=== PATIENT | male | born 1955 ===

== ENCOUNTER 2017-09-30 12:23 | Inpatient (IN) | payer OTHER ==
[~2017-09-30 12:23] MED LIST: CEFAZOLIN 2 Gram 2 GM/50 ML BAG IVPB ONE; CELECOXIB 100 MG CAPSULE PO ONE; FAMOTIDINE 20MG TABLET PO ONE; MECLIZINE 25 MG TABLET PO ONE; METOCLOPRAMIDE 10 MG TABLET PO ONE; VANCOMYCIN HCL 1,000 MG in DEXTROSE 5 % IN WATER 250 ML IVPB ONE
[2017-09-30 13:11] LABS: ABO GROUP O; ANTIBODY SCREEN NEGATIVE (NEGATIVE); RH TYPE NEGATIVE
[2017-09-30] MEDS ORDERED: 0.9 % SODIUM CHLORIDE 10 ML VIAL IVP ONE (16:09)
[2017-09-30] MEDS ORDERED: TRANEXAMIC ACID 1,000 MG/10 ML ML IV ONE (16:09)
[2017-09-30] MEDS ORDERED: KETOROLAC 30 MG/ML VIAL IVP PRN ×2 (17:08)
[2017-09-30] MEDS ORDERED: ACETAMINOPHEN 325 MG TAB PO PRN (17:08)
[2017-09-30] MEDS ORDERED: ACETAMINOPHEN W/ CODEINE 300MG/60MG TABLET PO PRN ×2 (17:08)
[2017-09-30] MEDS ORDERED: ONDANSETRON HCL IV 4 MG/2 ML VIAL IVP PRN (17:08)
[2017-09-30] MEDS ORDERED: MAGNESIUM HYDROXIDE 30 ML UDC PO PRN (17:08)
[2017-09-30] MEDS ORDERED: TRAMADOL HCL 50 MG TABLET PO PRN (17:08)
[2017-09-30] MEDS ORDERED: ZOLPIDEM TARTRATE 5 MG TABLET PO PRN (17:08)
[2017-09-30] MEDS ORDERED: DIPHENHYDRAMINE HCL 25 MG CAPSULE PO PRN (17:08)
[2017-09-30] MEDS ORDERED: BISACODYL 10 MG SUPP RC PRN (17:08)
[2017-09-30] MEDS ORDERED: HYDROCODONE/APAP 10/325 TABLET PO PRN (17:08)
[2017-09-30] MEDS ORDERED: NALOXONE 0.4 MG/1 ML VIAL IVP PRN (17:08)
[2017-09-30] MEDS ORDERED: AL HYDROX/MAG HYDROX 30ML UD PO PRN (17:08)
[2017-09-30] MEDS: HYDROMORPHONE HCL 2 MG/ML VIAL IM PRN (20:04)
[2017-09-30] MEDS: POTASSIUM CHLORIDE/D5-0.9%NACL 20 MEQ/1,000 ML BAG IV SCH (20:05)
[2017-09-30] MEDS: DOCUSATE SODIUM 100 MG CAPSULE PO SCH (21:07)
[2017-09-30] MEDS: CARVEDILOL 3.125 MG TABLET PO SCH (21:07)
[2017-09-30] MEDS: GABAPENTIN 300 MG CAPSULE PO SCH (21:07)
[2017-09-30] MEDS: CEFAZOLIN 2 Gram 2 GM/50 ML BAG IVPB SCH (23:13)
[2017-10-01] MEDS ORDERED: LIDOCAINE UROJECT 10 ML APPL MM ONE (00:52)
[2017-10-01] MEDS: POTASSIUM CHLORIDE/D5-0.9%NACL 20 MEQ/1,000 ML BAG IV SCH ×2 (01:37→10:07)
[2017-10-01] MEDS: HYDROCODONE/APAP 10/325 TABLET PO PRN ×4 (01:49→15:55)
[2017-10-01] MEDS: CEFAZOLIN 2 Gram 2 GM/50 ML BAG IVPB SCH ×3 (06:12→18:37)
--- NOTE | 2017-10-01 06:31 | Operative Note ---
DATE: 09/30/2017. PREOPERATIVE DIAGNOSIS: ENDSTAGE ARTHROSIS OF THE LEFT KNEE. POSTOPERATIVE DIAGNOSES: ENDSTAGE ARTHROSIS OF THE LEFT KNEE. PROCEDURES: Cemented left total knee arthroplasty using [employer] II components , a size 7 Oxinium femur, a size 6 stemmed tibial baseplate, a 9.0 mm lipped highly crosslinked tibial insert, and a 35 mm all-plastic patella. STAFF SURGEON: Amrik Reynaga M.D. ANESTHESIA: Spinal. PREPARATION: ChloraPrep. INDIVIDUAL CONSIDERATIONS: None. DESCRIPTION OF THE PROCEDURE: The patient was taken to the operating room and placed supine on the operating table. He had successful induction of a spinal anesthetic. His left lower extremity was prepped and draped in the usual fashion. The limb was elevated and the tourniquet was inflated to 250 mm Hg. The patient had a midline approach to the knee. Sharp dissection was carried down through skin and subcutaneous tissue. Small veins were coagulated with the Bovie. A medial arthrotomy was performed. The patella was everted and the knee was flexed. The patient had exposed bone in the medial and patellofemoral compartments with bone loss medially. The fat pad was resected and the anterior cruciate ligament was sacrificed. Provisional anterior meniscectomies were performed, and the capsule was released from the medial proximal tibia. The initial femoral airline pilot/first officer hole was then made freehand. The intramedullary femoral cutting jig was placed. It was cut in 7.0 degrees of valgus, adjusted for rotation, and secured with pins for a 10-mm resection. The initial transverse cut was then made. The skin guide was placed through the anteroposterior airline pilot/first officer holes, and it was found that a size 7 would be appropriate. The anterior and posterior cuts followed by chamfer cuts were made. Osteophytes were removed, and a size 7 trial was placed and was found to fit well. The tibia was brought forward, and the remainder of the meniscal remnants were removed with the Bovie. Loose bodies were also removed posteriorly. There was a large cyst that was drained. The extra-articular tibial cutting jig was placed. It was cut in neutral with a 3.0-degree AP slope. Care was taken to adjust for rotation and flexion using the extra-articular alignment guide and bony landmarks. It was set for a 9.0 mm resection keyed of the high lateral side and secured with pins. When cutting the tibia, care was taken to preserve the posterior cruciate ligament insertion on the tibia. Osteophytes were removed, and it was found that a size 6.0 baseplate would fit appropriately. It was adjusted for rotation and secured with pins. With a 9.0-mm trial in the femoral trial, there was excellent motion and stability. Ligamentous balance, rotation, and alignment were thought to be normal. The femoral airline pilot/first officer holes were impacted, a triflange tibial stamp was impacted, and these trial components were removed. The patient had a thick patella, and roughly 9.0 mm of bone was removed freehand. I could easily fit a 35 patella, and the three airline pilot/first officer holes were drilled. The tourniquet was let down briefly to get bleeders posteriorly and was then placed back up again. The knee was then thoroughly irrigated out with pulsatile Betadine and saline to remove any visual or palpable debris. Bony surfaces were then dried. A size 6 stemmed tibial baseplate was cemented into place followed by impaction of the 9.0 mm lipped tibial insert followed by cementing in the size 7 Oxinium femur followed by cementing in the 35-mm patella. Implant surfaces were compressed and excess cement was removed. After the cement had set there was excellent motion and stability. Ligamentous balance, rotation, alignment, and patellofemoral tracking were normal. No lateral release was required. Again thorough irrigation was performed to remove any visual or palpable debris with pulsatile Betadine and saline. The tourniquet was let down, and hemostasis was obtained with a Bovie. The capsule was then closed with a running #2 Quill. Subcutaneous was closed in layers with running 0 Quill. The skin, subcutaneous tissue, and periosteum were also infiltrated with 30 mL of 0.75% Marcaine with epinephrine. The skin was closed with yue. The patient had received 1.0 gm of tranexamic acid preoperatively. I mixed 1.0 gm of tranexamic acid with 30 mL of saline and injected it into the knee through a sterile 18-gauge needle. A sterile, bulky compressive Aquacel-type dressing was applied. The patient tolerated the procedure well. Needle and sponge counts were correct. Estimated blood loss was minimal. He was taken back to recovery in good condition. There were no complications. cc: Bienvenido Chapman
[2017-10-01 07:00] LABS: HEMATOCRIT 37.6 % (42.0-52.0); HEMOGLOBIN 12.3 gm/dl (14.0-18.0)
[2017-10-01 07:09] LABS: BLOOD UREA NITROGEN 10 mg/dL (8-23); CREATININE 0.9 mg/dL (0.7-1.2); EST GLOMERULAR FILTRATION RATE > 60 mL/min; GLUCOSE,RANDOM 114 mg/dL (74-109)
--- NOTE | 2017-10-01 09:48 | Rehab Evaluation ---
Patient Information - Patient Information Diagnosis: OA left knee Ordered Treatment: PT Evaluate and Treat Status: Initial Evaluation Surgery: Yes (Left TKA) Date of Surgery: 09/30/17 Past Medical/Surgical Hx: PAST MEDICAL/SURGICAL HISTORY Past Surgical History 10-10-16 lumbar sx cervical sx 08-07-16 cardiac stents 10-21-16 x's 2 right elbow scope 2012 PMH - Respiratory Hx Respiratory Disorders Yes Hx Pneumonia Yes: in past Hx Sleep Apnea Yes: possibly PMH - Cardiovascular Hx Cardiovascular Disorders Yes Hx Abnormal EKG Yes Hx Cardiac Catheterization Yes Hx Heart Attack Yes: minimal Hx Coronary Artery Disease Yes Hx Coronary Stent Yes: 10/29 Exercise Tolerance Good PMH - Neuro Hx Neurological Disorders No PMH - GI Hx Gastrointestinal Disorders No PMH - Hx Genitourinary Disorders No PMH - Endocrine Hx Endocrine Disorders No PMH - Musculoskeletal Hx Musculoskeletal Disorders Yes Hx Arthritis Yes PMH - Psych Hx Psychiatric Problems No PMH - Hematology/Oncology Hx Hematology/Oncology No Disorders Precautions: [place], Fall - Time With Patient Total Time Spent With Patient (Min): 30 Treatment Procedures: Detail (Patient seen in room, sitting up in chair and needs bandage changed since bleeding through. Nurse plans to do after we are done with his PT. Sit to stand without assistive device, carefully ambulated to closet without any support except briefly holding walker, able to get into sweat pants with very little assist then ambulated with appropriate height FWW to stairs, down steps three with only rail for support, pivoted around and ambulated back up three steps with only rail for support and correct technique. Ambulated with FWW, light hold and full weightbearing another 100 feet then back into room. Sat in chair for review of exercises for knee which he was able to do easily.) Subjective Information - Subjective Information Per Patient (Lives in single story home with , no stairs even into house. Has standard tub/shower with handholds so does not anticipate any problems. Standard height toilet but also does not anticipate any issues. Patient indicates wants to go to therapy in town where he lives.) Objective Data - Pain Pain Present: Yes Pain Scale Used: 6-7/10 - Mental Status Patient Orientation: Oriented x3 - Visual Perception Appears within normal limits for therapeutic activities - ROM Within normal limits (except knee slightly decreased: able to flex about 60 degrees and extension about -5 degrees.) - Strength/Tone Within normal limits (Doing well with weightbearing already and strength quads 3 +/5 or better. Hamstrings normal, hip normal.) - Coordination Appears within normal limits for therapeutic activities (Can't balance yet single leg left but able to walk with very little UE support.) - Bed Mobility Independent - Transfers Independent - Balance Balance Sitting: Good Balance Standing: Good - Sensation Intact - Gait Detail (Able to ambulate with FWW and very little support UES, almost full weightbearing on left LE 100+ feet in [place], up and down three steps with very little assist.) - Special Tests No Therapy Assessment - Therapy Assessment Detail (Patient has only slight issues with mobility, gait, transfers, exercises , stairs at this point.) Patient Education - Patient Education Teaching Topic: Equipment Use, Exercise/Activity Response: Return Demonstration Teaching Method: Demonstration Teaching Recipient: Patient Barriers To Learning: None Problem List - Problem List Physical Therapy Problem List: Detail (Patient would like to walk with cane so wants to try that before discharge. Very little issue with mobility, gait, execises so far but we will try to discharge him today and use only cane if appropriate.) Goals - Goals Physical Therapy Goals: Patient will be independent with mobility, gait with appropriate choice of assistive device, stairs, exercises as appropriate for right after surgery so can go home safely with . Prognosis - Prognosis Good (Very good as patient can already weightbear without assistive device and walking with almost full weightbearing with walker and ready to try cane.) Plan - Plan Physical Therapy Plan: Patient has actually passed all of skills needed to go home safely, but if still in hospital this afternoon, we will try gait with cane to see if he is ready for that. So daily or BID treatment today for preparation to go home with safely probably day after surgery.
[2017-10-01] MEDS ORDERED: RIVAROXABAN 10 MG TABLET PO SCH (10:00)
[2017-10-01] MEDS ORDERED: CLOPIDOGREL 75MG TABLET PO SCH (10:00)
[2017-10-01] MEDS ORDERED: ATORVASTATIN 20 MG TABLET PO SCH (10:00)
[2017-10-01] MEDS ORDERED: LISINOPRIL 5 MG TABLET PO SCH (10:00)
[2017-10-01] MEDS ORDERED: ASPIRIN 81 MG TABEC PO SCH (10:00)
[2017-10-01] MEDS ORDERED: FERROUS SULFATE 325 MG TAB PO SCH (10:00)
[2017-10-01] MEDS: DOCUSATE SODIUM 100 MG CAPSULE PO SCH (10:11)
[2017-10-01] MEDS: GABAPENTIN 300 MG CAPSULE PO SCH (10:12)
[2017-10-01] MEDS: HYDROMORPHONE HCL 2 MG/ML VIAL IM PRN (10:15)
[2017-10-01] MEDS: CARVEDILOL 3.125 MG TABLET PO SCH (10:25)
--- NOTE | 2017-10-01 10:44 | Rehab Evaluation ---
Patient Information - Patient Information Diagnosis: OA left knee Ordered Treatment: OT Evaluate and Treat Status: Initial Evaluation Surgery: Yes (Left TKA) Date of Surgery: 09/30/17 Past Medical/Surgical Hx: PAST MEDICAL/SURGICAL HISTORY Past Surgical History 10-10-16 lumbar sx cervical sx 08-07-16 cardiac stents 10-21-16 x's 2 right elbow scope 2012 PMH - Respiratory Hx Respiratory Disorders Yes Hx Pneumonia Yes: in past Hx Sleep Apnea Yes: possibly PMH - Cardiovascular Hx Cardiovascular Disorders Yes Hx Abnormal EKG Yes Hx Cardiac Catheterization Yes Hx Heart Attack Yes: minimal Hx Coronary Artery Disease Yes Hx Coronary Stent Yes: 10/29 Exercise Tolerance Good PMH - Neuro Hx Neurological Disorders No PMH - GI Hx Gastrointestinal Disorders No PMH - Hx Genitourinary Disorders No PMH - Endocrine Hx Endocrine Disorders No PMH - Musculoskeletal Hx Musculoskeletal Disorders Yes Hx Arthritis Yes PMH - Psych Hx Psychiatric Problems No PMH - Hematology/Oncology Hx Hematology/Oncology No Disorders Premorbid Status: Detail (Pt. was Ind with all I/ADL's prior to sx. Pt. has hx of R elbow sx with no residual limits to function.) Social History: Detail (Pt. lives in a single story ranch style home with a basement, and 1 six inch step to enter. Per pt report, he will not use basement during recovery period. Bathroom has a standard toilet, 1 small threshold step into shower, and a grab bar in the shower. Pt's will be available to assist if needed.) Precautions: [place], Fall - Time With Patient Total Time Spent With Patient (Min): 18 Subjective Information - Subjective Information Per Patient Objective Data - Pain Pain Present: Yes (Pt. stated 8/10 knee pain (just finished with PT session).) - Mental Status Patient Orientation: Oriented x3 - Visual Perception Appears within normal limits for therapeutic activities - ROM Within normal limits (BUE) - Strength/Tone Within normal limits (BUE) - Coordination Appears within normal limits for therapeutic activities - Bed Mobility Independent (not observed/per PT report) - Transfers Independent (Ind. with sit<>stand from chair.) - Balance Balance Sitting: Good Balance Standing: Good - Sensation Intact (lt touch in tact BUE fingertips) - ADL's/IADL's Detail (Physical therapy reported pt. independently dressed LB in elastic waist pants while standing. Pt. demo. ability to Ind. don & doff bilateral socks while seated in chair. Educ. provided in adaptive dressing techniques, pt. verbalized understanding. Pt. reported he stands in the shower; educ. provided on safety tips and alternatives until pt. has standing endurance to complete ( if needed).) Therapy Assessment - Therapy Assessment Detail (No OT services recommended at this time. Pt. demo. Ind. dressing, has a positive support system, and voiced no concerns. Pt. didn't use walker for in- room functional ambulation, stating he doesn't need it. Pt. does not demo. need for AE (i.e. tar leveler, sock aid, etc.) at this time.) Problem List - Problem List Physical Therapy Problem List: Detail (Patient would like to walk with cane so wants to try that before discharge. Very little issue with mobility, gait, execises so far but we will try to discharge him today and use only cane if appropriate.) Goals - Goals Physical Therapy Goals: Patient will be independent with mobility, gait with appropriate choice of assistive device, stairs, exercises as appropriate for right after surgery so can go home safely with . Prognosis - Prognosis Good Plan - Plan Physical Therapy Plan: Patient has actually passed all of skills needed to go home safely, but if still in hospital this afternoon, we will try gait with cane to see if he is ready for that. So daily or BID treatment today for preparation to go home with safely probably day after surgery. Occupational Therapy Plan: D/C from OT services. Pt. educ. provided to call rehab dept. if Q's/concerns arise when arrive home and pt. verbalized understanding.
[2017-10-01] MEDS ORDERED: BUPIVACAINE 0.75% W/EPI MPF 30ML VIAL IVP ONE (12:55)
[2017-10-01] MEDS ORDERED: TRANEXAMIC ACID 1,000 MG/10 ML ML IV ONE (12:55)
[2017-10-01] MEDS ORDERED: PROPOFOL 10 MG/ML VIAL IV ONE (15:57)
[2017-10-01] MEDS ORDERED: FENTANYL PF 100MCG/2ML VIAL IV ONE (15:57)
[2017-10-01] MEDS ORDERED: MIDAZOLAM HCL 2MG/2ML VIAL IV ONE (15:57)
[2017-10-01] MEDS ORDERED: ONDANSETRON HCL IV 4 MG/2 ML VIAL IVP ONE (15:57)
[2017-10-01] MEDS ORDERED: HYDROMORPHONE HCL 2 MG/ML VIAL IV ONE (15:57)
[2017-10-01] MEDS ORDERED: GLYCOPYRROLATE 0.2 MG/ML ML IV ONE (15:57)
[2017-10-01] MEDS ORDERED: EPHEDRINE SULFATE 50 MG/ML ML IV ONE (15:57)
[2017-10-01] MEDS ORDERED: METOCLOPRAMIDE HCL 10 MG/2 ML VIAL IVP ONE (15:57)
--- NOTE | 2017-10-03 08:00 | Discharge Summary ---
DATE OF ADMISSION: 09/30/2017. DATE OF DISCHARGE: 10/01/2017. DATE OF SURGERY: 09/30/2017. HISTORY: Mr. Wallace is a delightful 62-year-old male who presents with endstage arthrosis of his left knee. He was admitted after a left total knee arthroplasty. His hospital course was unremarkable. He was basically independent the night of surgery. LABORATORY DATA: His discharge hemoglobin was 12.3, and he did not require transfusion. PLAN: The plan is to discharge him home to the care of his family. Home physical therapy and visiting nurse have been arranged. He will be given Bells for pain and Xarelto for deep venous thrombosis prophylaxis. He will follow up in my office in four weeks. The visiting nurse will remove his sutures in two weeks. DISCHARGE CONDITION: His discharge condition was good. FINAL DIAGNOSIS AND PRIMARY DIAGNOSIS: Endstage arthrosis of the left knee. OPERATIONS AND PROCEDURES: Cemented left total knee arthroplasty. JOB NUMBER: [id number] cc: Bienvenido Chapman
== END 2017-10-01 16:35 | disposition home health service (06) | DRG 470 ==
LOC: MEDSURG 12:23
PROVIDERS: ADMIT Orthopaedic Surgery; ATTEND Orthopaedic Surgery
PROC: 0SRD069 Replacement of Left Knee Joint with Oxidized Zirconium on Polyethylene Synthetic Substitute, Cemented, Open Approach (ICD-10-PCS; principal; 2017-09-30 14:30)
DX: M17.12 Unilateral primary osteoarthritis, left knee (principal); E78.00 Pure hypercholesterolemia, unspecified; Z79.01 Long term (current) use of anticoagulants; I10 Essential (primary) hypertension; I25.10 Atherosclerotic heart disease of native coronary artery without angina pectoris
CPT/HCPCS: 80048; 85014; 85018; 86850; 86900; 86901; 97165; J1885; J2405; J2765; J3480; J3490; J7060